=== PATIENT | female | born 2005 | race Caucasian/White ===

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

== ENCOUNTER 2023-04-26 21:01 | Emergency (ER) | payer OTHER ==
[2023-04-26 21:07] VITALS: BP 104/72; PULSE 100; RESP 20; TEMP 98.6; BMI 21.7
== END 2023-04-26 21:39 | disposition left against medical advice (07) ==
LOC: JERFT 21:01
DX: J45.909 Unspecified asthma, uncomplicated (principal)
CPT/HCPCS: 99281-25

== ENCOUNTER 2023-04-26 23:05 | Emergency (ER) | payer OTHER ==
[2023-04-26 23:11] VITALS: BP 103/63; PULSE 82; RESP 18; TEMP 98.7; BMI 21.6
[2023-04-26] MEDS ORDERED: ACETAMINOPHEN 1000 MG/100 ML BAG IVPB ONE (23:32)
[2023-04-26] MEDS ORDERED: SODIUM CHLORIDE 0.9% 500 ML INFUS.BAG IV ONE (23:32)
[2023-04-26] MEDS ORDERED: ONDANSETRON 4 MG/2 ML VIAL IVPUSH ONE (23:32)
[2023-04-27] MEDS ORDERED: FAMOTIDINE 20 MG/50 ML IVPB 20 MG/50 ML MG IVPB ONE ×2 (00:09→00:10)
[2023-04-27] MEDS ORDERED: MAG HYDROX/AL HYDROX/SIMETH 30 ML UNIT-DOSE CUP PO ONE (00:09)
[2023-04-27] MEDS ORDERED: ACETAMINOPHEN INJECTION 100 ML IVPB ONE (00:10)
[2023-04-27] MEDS ORDERED: ONDANSETRON 4 MG/2 ML VIAL ONE (00:10)
[2023-04-27] MEDS ORDERED: MAG HYDROX/AL HYDROX/SIMETH 30 ML UNIT-DOSE CUP ONE (00:10)
[2023-04-27 00:17] LABS: BASO % 0.7 % (0-2.0); EOS % 2.5 % (0-4.5); HEMATOCRIT 36.7 % (32.4-45.2); HEMOGLOBIN 11.9 GM/dL (10.7-15.3); LYMPH % 30.9 % (8-40); MCH 28.1 pg (25.7-33.7); MCHC 32.4 g/dl (32.0-36.0); MEAN CELL VOLUME 86.7 fl (80-96); MEAN PLT VOLUME 6.3 fl (7.5-11.1); MONO % 7.2 % (3.8-10.2); NEUT % 58.7 % (42.8-82.8); PLATELET COUNT 456 10^3/uL (134-434); RBC 4.23 M/mm3 (3.60-5.2); RDW 12.4 % (11.6-15.6); WHITE BLOOD COUNT 8.7 K/mm3 (4.0-10.0)
[2023-04-27 00:20] LABS: EPI CELLS >36 /uL (0-25.1); HYALINE CASTS 6 /uL (0-3.1); PH,URINE 5.5 (5.0-8.0); URINE APPEARANCE CLEAR; URINE BACTERIA 1225 /uL (0-1359); URINE BILIRUBIN NEGATIVE (NEGATIVE); URINE COLOR YELLOW; URINE GLUCOSE (UA) NEGATIVE (NEGATIVE); URINE KETONE TRACE (NEGATIVE); URINE LEUK ESTERASE NEGATIVE (NEGATIVE); URINE NITRITE NEGATIVE (NEGATIVE); URINE PROTEIN 1+ (NEGATIVE); URINE RBC 21 /uL (0-23.9); URINE UROBILINOGEN 0.2 mg/dL (0.2-1.0)
[2023-04-27] MEDS: ALBUTEROL SO4 2.5/IPRATROPIUM 0.5 INH SOL 3 ML VIAL.NEB. NEB SCH ×2 (00:26→00:41)
[2023-04-27 00:30] LABS: POTASSIUM 4.1 mmol/L (3.5-5.1)
[2023-04-27 00:32] LABS: CALCIUM 9.3 mg/dL (8.5-10.1)
[2023-04-27 00:33] LABS: ALBUMIN 3.6 g/dl (3.4-5.0); BLOOD UREA NITROGEN 10.8 mg/dL (7-18); MAGNESIUM 1.9 mg/dL (1.8-2.4)
[2023-04-27 00:36] LABS: CREATININE 0.7 mg/dL (0.55-1.3)
[2023-04-27 00:38] LABS: BILIRUBIN,TOTAL 0.3 mg/dL (0.2-1)
== END 2023-04-27 01:52 | disposition home or self-care (01) ==
LOC: JER 23:05
PROC: 3E033GC Introduction of Other Therapeutic Substance into Peripheral Vein, Percutaneous Approach (ICD-10-PCS; 2023-04-26)
PROC: 3E033GC Introduction of Other Therapeutic Substance into Peripheral Vein, Percutaneous Approach (ICD-10-PCS; 2023-04-26)
PROC: 3E0F7GC Introduction of Other Therapeutic Substance into Respiratory Tract, Via Natural or Artificial Opening (ICD-10-PCS; 2023-04-26)
PROC: 3E033GC Introduction of Other Therapeutic Substance into Peripheral Vein, Percutaneous Approach (ICD-10-PCS; principal; 2023-04-27)
DX: R06.02 Shortness of breath (principal); R10.12 Left upper quadrant pain; J45.909 Unspecified asthma, uncomplicated
CPT/HCPCS: 36415; 80053; 81003; 83690; 83735; 84703; 85025; 87086; 99284-25

== ENCOUNTER 2023-06-29 01:24 | Emergency (ER) | payer OTHER ==
[2023-06-29 01:30] VITALS: BP 103/67; PULSE 87; RESP 18; TEMP 98.4; BMI 21.2
[2023-06-29] MEDS ORDERED: ACETAMINOPHEN 500 MG TABLET (FP) PO ONE (02:37)
[2023-06-29] MEDS ORDERED: ACETAMINOPHEN 500 MG TABLET (FP) ONE (02:42)
[2023-06-29] MEDS ORDERED: ACETAMINOPHEN 160 MG/5 ML *Children Solution PO ONE (02:49)
== END 2023-06-29 04:58 | disposition home or self-care (01) ==
LOC: JER 01:24
DX: R07.9 Chest pain, unspecified (principal); R51.9 Headache, unspecified; V47.6XXA Car passenger injured in collision with fixed or stationary object in traffic accident, initial encounter
CPT/HCPCS: 70450-TC; 71046-TC-FY; 84703; 99285-25

== ENCOUNTER 2023-07-28 01:16 | Emergency (ER) | payer OTHER ==
[2023-07-28 01:30] VITALS: BP 105/70; PULSE 100; RESP 18; TEMP 99.1; BMI 53.1
[2023-07-28 02:55] LABS: THROAT:GRP A STREP DETECTED (NOTDETECTED)
== END 2023-07-28 02:11 | disposition left against medical advice (07) ==
LOC: JER 01:16
DX: R05.9 Cough, unspecified (principal); R50.9 Fever, unspecified; R06.02 Shortness of breath; J02.0 Streptococcal pharyngitis; Z20.822 Contact with and (suspected) exposure to COVID-19
CPT/HCPCS: 0241U-QW; 87651; 99283-25

== ENCOUNTER → 2023-09-11 | Emergency (ER) | payer OTHER ==
[2023-09-11 19:11] VITALS: BP 101/58; PULSE 82; RESP 20; TEMP 99.1; BMI 27.6
[2023-09-11 19:39] LABS: EPI CELLS >36 /uL (0-25.1); HYALINE CASTS 1 /uL (0-3.1); URINE APPEARANCE CLEAR; URINE BACTERIA 21 /uL (0-1359); URINE BILIRUBIN NEGATIVE (NEGATIVE); URINE COLOR YELLOW; URINE GLUCOSE (UA) NEGATIVE (NEGATIVE); URINE KETONE NEGATIVE (NEGATIVE); URINE LEUK ESTERASE 2+ (NEGATIVE); URINE NITRITE NEGATIVE (NEGATIVE); URINE PROTEIN NEGATIVE (NEGATIVE); URINE RBC 32 /uL (0-23.9); URINE UROBILINOGEN 0.2 mg/dL (0.2-1.0); URINE WBC 162 /uL (0-25.8)
[2023-09-11 20:31] LABS: HCG,QUALITATIVE URINE Negative
== END | disposition left against medical advice (07) ==
LOC: JER 18:57 → JERFT 18:57
DX: M54.50 Low back pain, unspecified (principal); R30.0 Dysuria
CPT/HCPCS: 81003; 84703; 87086; 99283-25

== ENCOUNTER 2023-09-23 03:34 | Emergency (ER) | payer OTHER ==
[2023-09-23] MEDS ORDERED: DEXAMETHASONE SOD PHOSPHATE 10 MG/1 ML VIAL IM ONE (03:40)
[2023-09-23] MEDS ORDERED: ALBUTEROL SO4 2.5/IPRATROPIUM 0.5 INH SOL 3 ML VIAL.NEB. NEB ONE ×2 (03:46→04:24)
[2023-09-23] MEDS ORDERED: DEXAMETHASONE SOD PHOSPHATE 10 MG/1 ML VIAL ONE (03:46)
[2023-09-23 03:47] VITALS: BP 121/67; PULSE 98; RESP 18; TEMP 98.4; BMI 22.3
[2023-09-23] MEDS: ALBUTEROL SO4 2.5/IPRATROPIUM 0.5 INH SOL 3 ML VIAL.NEB. NEB SCH ×4 (03:55→04:49)
== END 2023-09-23 05:05 | disposition home or self-care (01) ==
LOC: JER 03:34
PROC: 3E023GC Introduction of Other Therapeutic Substance into Muscle, Percutaneous Approach (ICD-10-PCS; principal; 2023-09-23)
DX: R06.02 Shortness of breath (principal); J45.901 Unspecified asthma with (acute) exacerbation
CPT/HCPCS: 99284-25; J1100

== ENCOUNTER 2023-11-28 00:01 | Emergency (ER) | payer OTHER ==
[2023-11-28 00:18] VITALS: BP 102/62; PULSE 82; RESP 17; TEMP 97.9; BMI 22.1
[2023-11-28] MEDS ORDERED: ACETAMINOPHEN 500 MG TABLET (FP) PO ONE (00:42)
== END 2023-11-28 01:24 | disposition home or self-care (01) ==
LOC: JER 00:01
DX: O26.859 Spotting complicating pregnancy, unspecified trimester (principal); O26.899 Other specified pregnancy related conditions, unspecified trimester; R10.30 Lower abdominal pain, unspecified; Z3A.00 Weeks of gestation of pregnancy not specified
CPT/HCPCS: 84703; 99283-25

== ENCOUNTER 2023-11-30 01:26 | Emergency (ER) | payer OTHER ==
[2023-11-30 01:38] VITALS: BP 107/78; PULSE 92; RESP 18; TEMP 98.7; BMI 21.7
== END 2023-11-30 03:42 | disposition left against medical advice (07) ==
LOC: JER 01:26
DX: O20.9 Hemorrhage in early pregnancy, unspecified (principal); O26.891 Other specified pregnancy related conditions, first trimester; M54.50 Low back pain, unspecified; Z3A.00 Weeks of gestation of pregnancy not specified
CPT/HCPCS: 99281-25

== ENCOUNTER 2023-12-14 21:23 | Emergency (ER) | payer OTHER ==
[2023-12-14 21:30] VITALS: BP 102/64; PULSE 103; RESP 18; TEMP 98.5; BMI 21.7
[2023-12-14] MEDS ORDERED: ONDANSETRON *ODT* 4 MG TABLET SL ONE (22:20)
[2023-12-14] MEDS ORDERED: ACETAMINOPHEN 500 MG TABLET (FP) PO ONE (22:21)
[2023-12-14] MEDS ORDERED: ONDANSETRON *ODT* 4 MG TABLET ONE (22:22)
[2023-12-14] MEDS ORDERED: ACETAMINOPHEN 500 MG TABLET (FP) ONE (22:22)
[2023-12-14] MEDS ORDERED: ACETAMINOPHEN 650 MG/20.3 ML ORAL SOLUTION (CUPS) ONE (22:38)
== END 2023-12-14 22:44 | disposition home or self-care (01) ==
LOC: JERFT 21:23
DX: R11.10 Vomiting, unspecified (principal); R19.7 Diarrhea, unspecified; R51.9 Headache, unspecified; R10.9 Unspecified abdominal pain; Z20.822 Contact with and (suspected) exposure to COVID-19
CPT/HCPCS: 0241U-QW; 99283-25; Q0162

== ENCOUNTER 2023-12-14 23:06 | Emergency (ER) | payer OTHER ==
[2023-12-14 23:12] VITALS: BP 109/67; PULSE 68; RESP 18; TEMP 98.3; BMI 21.7
[2023-12-14] MEDS ORDERED: IBUPROFEN 100 MG/5 ML UNIT DOSE CUPS PO ONE (23:55)
[2023-12-14] MEDS ORDERED: DEXAMETHASONE LIQUID 0.5 MG/5 ML PO ONE (23:55)
[2023-12-15] MEDS ORDERED: DEXAMETHASONE SOD PHOSPHATE 10 MG/1 ML VIAL ONE (00:03)
[2023-12-15] MEDS ORDERED: IBUPROFEN 600 MG TABLET (FP) PO ONE (00:03)
== END 2023-12-15 00:32 | disposition home or self-care (01) ==
LOC: JER 23:06
DX: R52 Pain, unspecified (principal); J10.1 Influenza due to other identified influenza virus with other respiratory manifestations
CPT/HCPCS: 99283-25

== ENCOUNTER 2023-12-16 22:47 | Emergency (ER) | payer OTHER ==
[2023-12-16 23:27] VITALS: BP 119/72; PULSE 81; RESP 16; TEMP 100.7; BMI 18.6
== END 2023-12-16 23:34 | disposition left against medical advice (07) ==
LOC: JERFT 22:47 → JER 22:47 → JERFT 23:34
DX: R07.9 Chest pain, unspecified (principal); R05.9 Cough, unspecified; R11.0 Nausea; J11.1 Influenza due to unidentified influenza virus with other respiratory manifestations
CPT/HCPCS: 99283-25

== ENCOUNTER 2023-12-23 03:13 | Emergency (ER) | payer OTHER ==
[2023-12-23 03:22] VITALS: BP 111/71; PULSE 90; RESP 18; TEMP 98.5; BMI 21.2
[2023-12-23] MEDS ORDERED: IBUPROFEN 100 MG/5 ML UNIT DOSE CUPS PO ONE (03:48)
[2023-12-23] MEDS ORDERED: IBUPROFEN 100 MG/5 ML UNIT DOSE CUPS ONE (03:50)
[2023-12-23] MEDS ORDERED: AMOXICILLIN ORAL SUSPENSION - 250 MG/5 ML PO ONE (03:51)
== END 2023-12-23 04:14 | disposition home or self-care (01) ==
LOC: JER 03:13
DX: H92.02 Otalgia, left ear (principal)
CPT/HCPCS: 99283-25

== ENCOUNTER 2024-06-12 15:43 | Emergency (ER) | payer OTHER ==
[2024-06-12 15:52] VITALS: BP 102/61; PULSE 87; RESP 17; TEMP 97.9; BMI 21.2
== END 2024-06-12 16:45 | disposition left against medical advice (07) ==
LOC: JER 15:43
DX: E16.2 Hypoglycemia, unspecified (principal); R42 Dizziness and giddiness
CPT/HCPCS: 99283-25

== ENCOUNTER 2024-07-19 22:53 | Emergency (ER) | payer OTHER ==
[2024-07-19 23:00] VITALS: RESP 20; TEMP 99.5; BMI 19.1
[2024-07-19] MEDS ORDERED: ONDANSETRON *ODT* 4 MG TABLET ONE (23:35)
[2024-07-19] MEDS: ONDANSETRON *ODT* 4 MG TABLET SL ONE (23:36)
[2024-07-19] MEDS: ACETAMINOPHEN 650 MG/20.3 ML ORAL SOLUTION (CUPS) PO ONE (23:36)
[2024-07-20 00:47] LABS: HIV INTERPRETATION NEGATIVE (NEGATIVE)
[2024-07-20 00:50] VITALS: BP 102/70; PULSE 88
[2024-07-20] MEDS ORDERED: AZITHROMYCIN 500 MG TABLET ONE (01:30)
[2024-07-20] MEDS ORDERED: DEXAMETHASONE 4 MG TABLET (FP) ONE (01:31)
[2024-07-20] MEDS: DEXAMETHASONE 4 MG TABLET (FP) PO ONE (01:33)
[2024-07-20] MEDS: AZITHROMYCIN 500 MG TABLET PO ONE (01:33)
== END 2024-07-20 01:33 | disposition home or self-care (01) ==
LOC: JER 22:53
DX: J32.9 Chronic sinusitis, unspecified (principal); R50.9 Fever, unspecified; M79.10 Myalgia, unspecified site; R11.2 Nausea with vomiting, unspecified; R19.7 Diarrhea, unspecified; R53.1 Weakness; R09.81 Nasal congestion; R05.9 Cough, unspecified; R10.30 Lower abdominal pain, unspecified; Z20.822 Contact with and (suspected) exposure to COVID-19
CPT/HCPCS: 0241U-QW; 36415; 86803; 87389; 99283-25; Q0162